=== PATIENT | female | born 1955 | race Caucasian/White ===

== ENCOUNTER 2017-10-10 05:47 | Emergency (ER) | payer OTHER ==
[~2017-10-10] VITALS: Ht 157.5 cm; Wt 78.2 kg
[2017-10-10] MEDS ORDERED: METF500T4 PO (06:16)
[2017-10-10] MEDS ORDERED: LISI-167 PO (06:16)
[2017-10-10] MEDS ORDERED: KETOROLAC 30 MG/1 ML ONE (06:20)
[2017-10-10] MEDS ORDERED: KETOROLAC 30 MG/1 ML IM ONE (06:30)
[2017-10-10 06:48] LABS: PATH.CAST-FLAG NOT PRESENT; SPERM-FLAG NOT PRESENT; SRC-FLAG NOT PRESENT; XTAL-FLAG NOT PRESENT; YLC-FLAG NOT PRESENT
[2017-10-10 06:58] LABS: HEMATOCRIT 43.3 % (34.6-47.8); HEMOGLOBIN 14.9 g/dL (11.7-16.4); WHITE BLOOD COUNT 9.5 x10^3/uL (3.4-10)
[2017-10-10 07:08] LABS: BLOOD UREA NITROGEN 10 mg/dL (7-18)
[2017-10-10 08:04] VITALS: BP 122/69
== END 2017-10-10 08:29 | disposition home or self-care (01) ==
LOC: ED 06:07
DX: R51 Headache (principal); I10 Essential (primary) hypertension; E11.9 Type 2 diabetes mellitus without complications
CPT/HCPCS: 36415; 70450; 80048; 81001; 82040; 85025; 87086; 96372; 99285; J1885

== ENCOUNTER 2018-11-16 15:32 | Emergency (ER) | payer OTHER ==
[~2018-11-16] VITALS: Ht 157.5 cm; Wt 76.8 kg
[~2018-11-16 15:32] MED LIST: LISI-167 PO; METF500T17 PO
[2018-11-16 16:45] LABS: BASOPHILS # (AUTO) 0.04 x10^3/uL (0-0.1); BASOPHILS % (AUTO) 1 % (0-1); EOSINOPHILS # (AUTO) 0.25 x10^3/uL (0-0.4); EOSINOPHILS % (AUTO) 4 % (1-7); LYMPHOCYTES # (AUTO) 2.82 x10^3/uL (1-3.4); LYMPHOCYTES % (AUTO) 42 % (22-44); MD NO; MEAN CORPUSCULAR HEMOGLOBIN 30.9 pg (27.0-34.8); MEAN CORPUSCULAR HGB CONC 33.8 g/dL (32.4-35.8); MEAN CORPUSCULAR VOLUME 91.5 fL (80-100); MEAN PLATELET VOLUME 9.9 fL (7.4-10.4); MONOCYTES # (AUTO) 0.53 x10^3/uL (0.2-0.8); MONOCYTES % (AUTO) 8 % (2-9); NEUTROPHILS # (AUTO) 3.04 x10^3/uL (1.8-6.8); NEUTROPHILS % (AUTO) 46 % (42-75); PLATELET COUNT 237 x10^3/uL (130-400); RED BLOOD COUNT 4.52 x10^6/uL (3.82-5.3); RED CELL DISTRIBUTION WIDTH 13.6 % (9.6-15.2)
[2018-11-16 16:58] LABS: ALANINE AMINOTRANSFERASE 41 U/L (12-78); ALBUMIN 3.4 g/dL (3.4-5.0); ANION GAP 5 mmol/L (5-15); CALCIUM 8.6 mg/dL (8.5-10.1); CHLORIDE 107 mmol/L (98-107); CREATININE 0.91 mg/dL (0.55-1.02)
--- NOTE | 2018-11-16 16:59 | NUR ---
URINE COLLECTED/SENT TO LAB. WARM BLANKET PROVIDED, CALL LIGHT WITHIN REACH.
[2018-11-16 17:00] LABS: ALKALINE PHOSPHATASE 73 U/L (45-117); BILIRUBIN,TOTAL 0.2 mg/dL (0.2-1.0); TOTAL PROTEIN 7.7 g/dL (6.4-8.2)
[2018-11-16] MEDS ORDERED: SODIUM CHLORIDE FLUSH 10ML SYR IVF ONE (17:00)
[2018-11-16 17:13] LABS: MICROSCOPIC NOT IND
[2018-11-16 17:19] LABS: CULTURE INDICATED? NO
--- NOTE | 2018-11-16 17:46 | NUR ---
PT TO CT.
[2018-11-16] MEDS ORDERED: OMNIPAQUE 350 MG/ML, 100ML BOTTLE ONE (18:02)
--- NOTE | 2018-11-16 18:47 | NUR ---
ALL RESULTS BACK, PT FOR RECHECK.
--- NOTE | 2018-11-16 19:27 | NUR ---
ASSIST ERP WITH RECTAL EXAM/WNL.
[2018-11-16 19:29] VITALS: BP 122/68
== END 2018-11-16 19:40 | disposition home or self-care (01) ==
LOC: ED 17:37
DX: K62.89 Other specified diseases of anus and rectum (principal); Z90.49 Acquired absence of other specified parts of digestive tract; Z90.710 Acquired absence of both cervix and uterus; I10 Essential (primary) hypertension; E11.9 Type 2 diabetes mellitus without complications
CPT/HCPCS: 36415; 74177; 80053; 81003; 83690; 85025; 99284; Q9967

== ENCOUNTER 2020-10-22 17:03 | Emergency (ER) | payer OTHER ==
[~2020-10-22] VITALS: Ht 149.9 cm; Wt 74.0 kg
[2020-10-22 17:58] LABS: BASOPHILS % (AUTO) 1 % (0-1); EOSINOPHILS % (AUTO) 3 % (1-7); LYMPHOCYTES % (AUTO) 41 % (22-44); MEAN CORPUSCULAR HEMOGLOBIN 30.9 pg (27.0-34.8); MEAN CORPUSCULAR HGB CONC 33.9 g/dL (32.4-35.8); MEAN PLATELET VOLUME 9.8 fL (7.4-10.4); MONOCYTES % (AUTO) 10 % (2-9); NEUTROPHILS % (AUTO) 45 % (42-75); PLATELET COUNT 258 x10^3/uL (130-400); RED CELL DISTRIBUTION WIDTH 13.6 % (9.6-15.2)
[2020-10-22 18:00] LABS: MD NO
[2020-10-22] MEDS ORDERED: ASPIRIN 81 MG TABLET CHEW PO ONE (18:00)
[2020-10-22 18:05] LABS: ALBUMIN 3.7 g/dL (3.4-5.0); ANION GAP 6 mmol/L (5-15); CALCIUM 9.2 mg/dL (8.5-10.1); CHLORIDE 107 mmol/L (98-107)
[2020-10-22 18:07] LABS: CREATININE 0.81 mg/dL (0.55-1.02)
[2020-10-22 18:08] LABS: ALANINE AMINOTRANSFERASE 68 U/L (12-78); ALKALINE PHOSPHATASE 84 U/L (45-117); BILIRUBIN,TOTAL 0.3 mg/dL (0.2-1.0); TOTAL PROTEIN 8.3 g/dL (6.4-8.2); TROPONIN I < 0.015 ng/mL (0.000-0.045)
[2020-10-22] MEDS ORDERED: ASPIRIN 81 MG TABLET CHEW ONE (18:10)
--- NOTE | 2020-10-22 18:12 | NUR ---
LEFT SIDED CHEST PAIN AND LEFT ARM PAIN STARTED YESTERDAY. PT HAS A COUGH AND SOME SOB.
[2020-10-22] MEDS ORDERED: CEFTRIAXONE PMX 1GM/50ML 50 ML ONE (18:20)
--- NOTE | 2020-10-22 18:23 | NUR ---
PROVIDER AT BEDSIDE DISCUSSING PLAN OF CARE
[2020-10-22] MEDS ORDERED: CEFTRIAXONE PMX 1GM/50ML 50 ML IVPB ONE (19:00)
--- NOTE | 2020-10-22 19:05 | NUR ---
AMBULATORY TO & FROM [facility] W/OUT INCIDENT; GAIT STEADY. PT REPORT FROM ARNAV DUARTE. PT CARE TO BE ASSUMED.
[2020-10-22] MEDS ORDERED: SODIUM CHLORIDE FLUSH 10ML SYR IVF ONE (19:30)
--- NOTE | 2020-10-22 19:35 | NUR ---
DR LOZANO AT BS W/ [employer].
[2020-10-22] MEDS ORDERED: AZITHROMYCIN 500 MG in SODIUM CHLORIDE 0.9% 250 ML IVPB ONE (20:00)
[2020-10-22 20:30] VITALS: BP 115/72
--- NOTE | 2020-10-22 21:28 | NUR ---
[employer] INSTRUCTIONS PROVIDED TO PT; UNDERSTANDING VERBALIZED.
== END 2020-10-22 21:30 | disposition home or self-care (01) ==
LOC: ED 17:28
DX: U07.1 COVID-19 (principal); J18.1 Lobar pneumonia, unspecified organism; R06.00 Dyspnea, unspecified; E11.9 Type 2 diabetes mellitus without complications; I10 Essential (primary) hypertension
CPT/HCPCS: 36415; 71045; 80053; 83605; 83880; 84484; 85025; 85379; 87040; 93005; 96365; 96367; 99285; J0456; J0696; J7050; 99284

== ENCOUNTER 2020-10-26 08:56 | Emergency (ER) | payer OTHER ==
[~2020-10-26] VITALS: Ht 157.5 cm; Wt 74.4 kg
[2020-10-26] MEDS ORDERED: KETOROLAC 30 MG/1 ML IM ONE (09:30)
[2020-10-26 09:36] LABS: BASOPHILS % (AUTO) 1 % (0-1); EOSINOPHILS % (AUTO) 3 % (1-7); LYMPHOCYTES % (AUTO) 35 % (22-44); MEAN CORPUSCULAR HGB CONC 33.8 g/dL (32.4-35.8); MEAN PLATELET VOLUME 9.5 fL (7.4-10.4); MONOCYTES % (AUTO) 7 % (2-9); NEUTROPHILS % (AUTO) 54 % (42-75); PLATELET COUNT 242 x10^3/uL (130-400); RED BLOOD COUNT 4.51 x10^6/uL (3.82-5.3); RED CELL DISTRIBUTION WIDTH 14.1 % (9.6-15.2)
[2020-10-26 09:37] LABS: MD NO
[2020-10-26 09:46] LABS: ALANINE AMINOTRANSFERASE 70 U/L (12-78); ALBUMIN 3.8 g/dL (3.4-5.0); ANION GAP 6 mmol/L (5-15); C-REACTIVE PROTEIN, QUANT 0.66 mg/dL (0.02-0.49); CHLORIDE 108 mmol/L (98-107); CREATININE 0.79 mg/dL (0.55-1.02)
[2020-10-26] MEDS ORDERED: KETOROLAC 30 MG/1 ML ONE (09:47)
[2020-10-26 09:48] LABS: ALKALINE PHOSPHATASE 85 U/L (45-117); BILIRUBIN,TOTAL 0.3 mg/dL (0.2-1.0); TOTAL PROTEIN 8.3 g/dL (6.4-8.2)
--- NOTE | 2020-10-26 10:46 | NUR ---
PT MEDICATED FOR LIZ IN CHEST AND NECK AFTER COUGING TOO MUCH. PT REPORTS CP ONLY WITH COUGHING. PT ON MONITOR.
[2020-10-26 11:55] VITALS: BP 128/78
== END 2020-10-26 11:57 | disposition home or self-care (01) ==
LOC: ED 10:52
DX: J18.9 Pneumonia, unspecified organism (principal); R00.0 Tachycardia, unspecified; E11.9 Type 2 diabetes mellitus without complications; I10 Essential (primary) hypertension; Z90.49 Acquired absence of other specified parts of digestive tract; Z90.710 Acquired absence of both cervix and uterus
CPT/HCPCS: 36415; 71045; 80053; 84145; 85025; 86140; 93005; 96372; 99285; J1885